=== PATIENT | female | born 1980 | race Caucasian/White ===

== ENCOUNTER 2019-11-12 17:27 | Emergency (ER) | payer OTHER, SELFPAY ==
--- NOTE | ~2019-11-12 | XR_ITS ---
EXAMINATION: XR chest 2V DATE: 11/12/2019 18:24 INDICATION: Smoker with COPD presenting with one week of shortness of breath, cough and wheezing TECHNIQUE: PA and lateral views of the chest were obtained. COMPARISON: Chest radiograph dated 02/19/2019 FINDINGS: Opacity silhouetting a portion of the left heart border which is without intrapulmonary correlate on the lateral projection most likely related to a small paracardial fat pad which is seen anteriorly on the lateral projection. No other new airspace opacities, pulmonary edema, pleural effusion or pneumo thorax. Heart size is normal. Mild thoracic spondylosis. IMPRESSION: 1. No acute cardiopulmonary disease. Reviewed, dictated and finalized at location A. [facility]
[2019-11-12 17:45] VITALS: BP 114/70; PULSE 93; RESP 18; TEMP 36.6; O2SAT 96
--- NOTE | 2019-11-12 17:58 | ED.GENADULT ---
HPI - General Adult General Chief complaint: Upper Respiratory Infection Stated complaint: SOB Time Seen by Provider: 11/12/19 17:58 Source: patient Mode of arrival: ambulatory Limitations: no limitations History of Present Illness HPI narrative: 39-year-old female patient presents to the [facility] with complaints of shortness of breath in the past week. Patient is a positive smoker. Patient does have a history of COPD and asthma. Patient denies getting a flu shot this year. Patient states that she does have an albuterol nebulizer at home that she has been using every 4 hours for her shortness of breath. Patient denies any fevers that she is aware of. Patient states that she has had a cough and it does feel very congested. Patient states that she does have some chest pain with inspiration. Related Data Home Medications Medication Instructions Recorded Confirmed albuterol sulfate 2 puff INHALATION QID PRN 10/02/19 11/12/19 albuterol sulfate 2.5 mg INHALATION Q4H PRN 10/02/19 11/12/19 escitalopram oxalate [Lexapro] 10 mg PO DAILY 10/02/19 11/12/19 famotidine 40 mg PO DAILY 10/02/19 11/12/19 lamotrigine [Lamictal] 100 mg PO DAILY 10/02/19 11/12/19 umeclidinium [Incruse Ellipta] 1 inh INHALATION DAILY 10/02/19 11/12/19 Allergies Allergy/AdvReac Type Severity Reaction Status Date / Time Opioids - Morphine Analogues AdvReac Severe Vomiting Verified 11/12/19 17:59 and dizziness codeine AdvReac Unknown N/V Verified 11/12/19 17:59 Review of Systems Review of Systems: Narrative: CONSTITUTIONAL: Denies fever, chills, or sweats. EYES: Denies visual changes, redness, or discharge. ENT: Denies rhinorrhea, congestion, sore throat, or otalgia. CARDIOVASCULAR: Positive inspiration chest pain, denies palpitations, or edema. RESPIRATORY: Positive cough with dyspnea. GASTROINTESTINAL: Denies abdominal pain, nausea, vomiting, or diarrhea. GENITOURINARY: Denies dysuria or hematuria. SKIN: Denies rash or itching. MUSCULOSKELETAL: Denies back pain, joint pain, or myalgia. NEUROLOGIC: Denies headache, numbness, or weakness. PSYCHIATRIC: Denies anxiety or depression. PMFSH Past Medical History Medical History Asthma COPD (chronic obstructive pulmonary disease) with acute bronchitis Comments At the time of my signature I agree with nursing past medical history, surgical, social, and family history. There is no relevant family history pertinent to the presenting complaint. Exam Narrative: Exam Narrative: GENERAL: ill-appearing, well-nourished, and in no acute distress. HEAD: Normocephalic, atraumatic. EYES: PERRLA and EOMI. ENT: Nares with erythema and edema noted bilaterally, no rhinorrhea or epistaxis. Mucous membranes moist. Posterior pharynx with no erythema, tonsil enlargement, exudates or lesions present. Bilateral TMs are clear with no erythema or foreign bodies in the canal. NECK: Supple. No lymphadenopathy CHEST: Patient has expiratory wheezing noted to bilateral upper lower lobes. Patient does have slight labored breathing noted talking in some broken sentences. No tripoding noted. HEART: Regular rate and rhythm. No murmur heard. Normal peripheral pulses. ABDOMEN: Soft, nontender, nondistended, normal active bowel sounds. EXTREMITIES: Normal range of motion. No edema. SKIN: Warm, dry, no rash. NEURO: No focal deficits. Alert and oriented x3. Course Reevaluation(s) Reevaluation #1: Reevaluated patient after her DuoNeb was completed. Patient states that she is feeling a little bit better since the DuoNeb. Patient's lung sounds continue to be wheezy on expiratory to the right lower lobe and there is no rhonchi noted on expiration to bilateral upper lobes and left lower lobe. Patient does sound less tight after the DuoNeb was completed. Discussed with patient that the x-ray does not show any obvious pneumonia however given her history of COPD, asthma as well as
[2019-11-12] MEDS: IPRATROPIUM BR 0.02% INH SOLN 0.5 MG/2.5 ML VIAL INHALATION (18:23)
[2019-11-12] MEDS: ALBUTEROL SULFATE NEB 2.5 MG/3 ML INH INHALATION (18:23)
[2019-11-12 18:44] VITALS: PULSE 80; RESP 16; O2SAT 97
== END 2019-11-12 18:56 | disposition home or self-care (01) ==
PROVIDERS: Emergency Provider Nurse Practitioner Family
DX: J44.9 Chronic obstructive pulmonary disease, unspecified (principal); J45.901 Unspecified asthma with (acute) exacerbation; K21.9 Gastro-esophageal reflux disease without esophagitis; F41.9 Anxiety disorder, unspecified; F31.9 Bipolar disorder, unspecified
CPT/HCPCS: 71046; 94640; 99213; G0463

== ENCOUNTER 2020-02-18 13:43 | Emergency (ER) | payer OTHER, SELFPAY ==
[2020-02-18 14:00] VITALS: BP 123/73; PULSE 96; RESP 20; TEMP 36.8; O2SAT 98
--- NOTE | 2020-02-18 14:23 | ED.SKABFB ---
HPI - Skin/Abscess/Foreign Bdy General Chief complaint: Extremity Problem,Nontraumatic Stated complaint: right pinky toe pain Time Seen by Provider: 02/18/20 14:23 Source: patient and RN notes reviewed History of Present Illness HPI narrative: Patient is a 39-year-old female that presents the urgent care with complaints of a blister to the pinky toe of the right foot. Patient states that she attempted to pop it yesterday and has had an increase in pain since then. Patient states that she then bought new shoes and decided to put inserts in them and wear them to work for 9 hours. Patient states that the pain is now increased and it feels like it is burning while in the shoe . Patient states that started approximately 4 days ago and does not seem to be improving. Denies of any fever, chills, nausea, vomiting. No other acute complaints. No acute distress noted. Patient read plan of care. Related Data Home Medications Medication Instructions Recorded Confirmed albuterol sulfate 2 puff INHALATION QID PRN 10/02/19 02/18/20 albuterol sulfate 2.5 mg INHALATION Q4H PRN 10/02/19 02/18/20 famotidine 40 mg PO DAILY 10/02/19 02/18/20 lamotrigine [Lamictal] 100 mg PO DAILY 10/02/19 02/18/20 umeclidinium [Incruse Ellipta] 1 inh INHALATION DAILY 10/02/19 02/18/20 budesonide-formoterol [Symbicort] 2 inh INHALATION DAILY 02/18/20 02/18/20 cholecalciferol (vitamin D3) 25 mcg PO DAILY 02/18/20 02/18/20 escitalopram oxalate 20 mg PO DAILY 02/18/20 02/18/20 Allergies Allergy/AdvReac Type Severity Reaction Status Date / Time Opioids - Morphine Analogues AdvReac Severe Vomiting Verified 02/18/20 14:00 and dizziness codeine AdvReac Unknown N/V Verified 02/18/20 14:00 Review of Systems Review of Systems: Narrative: CONSTITUTIONAL: Denies fever, chills, or sweats. EYES: Denies visual changes, redness, or discharge. ENT: Denies rhinorrhea, congestion, sore throat, or otalgia. CARDIOVASCULAR: Denies chest pain, palpitations, or edema. RESPIRATORY: Denies cough or dyspnea. GASTROINTESTINAL: Denies abdominal pain, nausea, vomiting, or diarrhea. GENITOURINARY: Denies dysuria or hematuria. SKIN: Reports of a blister on the pinky toe of the right foot MUSCULOSKELETAL: Denies back pain, joint pain, or myalgia. NEUROLOGIC: Denies headache, numbness, or weakness. All other systems reviewed are negative, except as documented in HPI. PMFSH Comments At the time of my signature, I reviewed and agree with the nursing past medical, surgical, social, and family history. There is no relevant family history pertinent to the patient complaint. Exam Narrative: Exam Narrative: GENERAL: This is a well-nourished, well-developed patient, in no apparent distress. HEAD: normocephalic, atraumatic. EYES: PERRL. Sclera clear/white. Vision is grossly intact. EARS: External ears normal NOSE: External nose normal with no obvious nasal discharge, nares without redness, no rhinorrhea. THROAT: Mucous membranes moist NECK: Neck supple SKIN: 1.5cm diameter fluid-filled blister noted to the plantar aspect of the fifth toe of the right foot. Warm, intact with no suspicious lesions or rash, good texture and turgor. NEURO: awake, alert, and oriented to person, place and time. There were no obvious focal neurologic abnormalities. EXTREMITIES: No clubbing, cyanosis, or edema. Course Vital Signs Vital signs: Vital Signs Temperature 98.2 F 02/18/20 14:00 Pulse Rate 96 02/18/20 14:00 Respiratory Rate 02/18/20 14:00 Blood Pressure 123/73 02/18/20 14:00 Pulse Oximetry 98 02/18/20 14:00 Temperature 98.2 F 02/18/20 14:00 Pulse Rate 96 02/18/20 14:00 Respiratory Rate 02/18/20 14:00 Blood Pressure 123/73 02/18/20 14:00 Pulse Oximetry 98 02/18/20 14:00 Reviewed MDM - Skin/Abscess/Foreign Bdy MDM Narrative Medical decision making narrative: Advised the patient not to pop the blister. Allow it to either dissipate/resolve or drain on it
== END 2020-02-18 14:34 | disposition home or self-care (01) ==
PROVIDERS: Emergency Provider Nurse Practitioner Family
DX: S90.424A Blister (nonthermal), right lesser toe(s), initial encounter (principal); X58.XXXA Exposure to other specified factors, initial encounter
CPT/HCPCS: 99211; G0463

== ENCOUNTER 2020-06-18 08:16 | Emergency (ER) | payer OTHER, SELFPAY ==
--- NOTE | 2020-06-18 08:19 | ED.EAR ---
HPI - Ear Problem General Chief complaint: Ear Stated complaint: ear pain/nausea Time Seen by Provider: 06/18/20 08:19 Source: patient and RN notes reviewed History of Present Illness HPI Narrative: Patient is a 40-year-old female who presents the urgent care with complaints of ear pain and nausea. Patient states that when she moves her head too fast [id number] she becomes dizzy . Patient denies of any fever, nausea, vomiting. Denies of any other upper respiratory symptoms. Patient states she has been using Excedrin and Advil for the pain. No other acute complaints. No acute distress noted. Patient aware of the plan of care. Some parts of this dictation were generated by voice recognition software and may contain typographical and/or grammatical inaccuracies. Related Data Home Medications Medication Instructions Recorded Confirmed albuterol sulfate 2.5 mg INHALATION Q4H PRN 10/02/19 06/18/20 famotidine 40 mg PO DAILY 10/02/19 06/18/20 lamotrigine [Lamictal] 100 mg PO DAILY 10/02/19 06/18/20 umeclidinium [Incruse Ellipta] 1 inh INHALATION DAILY 10/02/19 06/18/20 budesonide-formoterol [Symbicort] 2 inh INHALATION DAILY 02/18/20 06/18/20 cholecalciferol (vitamin D3) 25 mcg PO DAILY 02/18/20 06/18/20 escitalopram oxalate 20 mg PO DAILY 02/18/20 06/18/20 bupropion HCl [Wellbutrin XL] 75 mg PO QAM 06/18/20 06/18/20 zafirlukast 20 mg PO Q12H 06/18/20 06/18/20 Allergies Allergy/AdvReac Type Severity Reaction Status Date / Time Opioids - Morphine Analogues AdvReac Severe Vomiting Verified 06/18/20 08:25 and dizziness codeine AdvReac Unknown N/V Verified 06/18/20 08:25 Review of Systems Review of Systems: Narrative: CONSTITUTIONAL: Denies fever, chills, or sweats. EYES: Denies visual changes, redness, or discharge. ENT: Reports of bilateral ear pain/pressure CARDIOVASCULAR: Denies chest pain, palpitations, or edema. RESPIRATORY: Denies cough or dyspnea. GASTROINTESTINAL: Reports of intermittent nausea related to the dizziness- without vomiting, diarrhea, abdominal pain GENITOURINARY: Denies dysuria or hematuria. SKIN: Denies rash or itching. MUSCULOSKELETAL: Denies back pain, joint pain, or myalgia. NEUROLOGIC: Denies headache, numbness, or weakness. Reports of intermittent dizziness with quick movements of the head All other systems reviewed are negative, except as documented in HPI. PMFSH Comments At the time of my signature, I reviewed and agree with the nursing past medical, surgical, social, and family history. There is no relevant family history pertinent to the patient complaint. Exam Narrative: Exam Narrative: GENERAL: This is a well-nourished, well-developed patient, in no apparent distress. HEAD: normocephalic, atraumatic. EYES: PERRL. Sclera clear/white. Vision is grossly intact. EARS: External ears normal, auditory canals clear and without drainage, TMs normal without perforation. Hearing grossly intact. NOSE: External nose normal with no obvious nasal discharge, nares without redness, no rhinorrhea. THROAT: Mucous membranes moist, posterior pharynx clear. NECK: Neck supple, non-tender without lymphadenopathy, masses or thyromegaly. CARDIOVASCULAR: Regular rate and rhythm without murmurs, gallops, or rubs. RESPIRATORY: Clear to auscultation. Breath sounds equal bilaterally. No wheezes, rales, or rhonchi. GASTROINTESTINAL: Abdomen soft, non-tender, nondistended. Bowel sounds are active. No hepato-splenomegaly, or palpable masses. No guarding. SKIN: warm, intact with no suspicious lesions or rash, good texture and turgor. NEURO: awake, alert, and oriented to person, place and time. There were no obvious focal neurologic abnormalities. EXTREMITIES: No clubbing, cyanosis, or edema. No joint tenderness, effusion, or edema noted. No calf tenderness. Negative Homans sign bilaterally. BACK: Nontender without deformity or crepitance. No flank tenderness. Course Vital Signs Vital signs: Vital Signs Tempera
[2020-06-18 08:20] VITALS: BP 118/75; PULSE 112; RESP 16; TEMP 36.4; O2SAT 96
== END 2020-06-18 08:37 | disposition home or self-care (01) ==
PROVIDERS: Emergency Provider Nurse Practitioner Family; PCP Nurse Practitioner Adult Health
DX: H92.03 Otalgia, bilateral (principal); I10 Essential (primary) hypertension; J44.9 Chronic obstructive pulmonary disease, unspecified; K21.9 Gastro-esophageal reflux disease without esophagitis; F41.9 Anxiety disorder, unspecified; F31.9 Bipolar disorder, unspecified
CPT/HCPCS: 99213; G0463

== ENCOUNTER 2021-02-13 18:09 | Emergency (ER) | payer OTHER, SELFPAY ==
[2021-02-13 18:13] VITALS: BP 129/71; PULSE 86; RESP 16; TEMP 36.7; O2SAT 96
--- NOTE | 2021-02-13 18:56 | ED.URI ---
HPI - URI/Sore Throat General Chief Complaint: Ear Stated Complaint: Nausea, Headache, dizziness, Ear pain Time Seen by Provider: 02/13/21 18:43 Source: patient and RN notes reviewed Mode of arrival: ambulatory Limitations: no limitations History of Present Illness HPI Narrative: Patient presents today with a 2 to 3-day history of right ear pain radiating to the right neck, headache with pressure behind her eyes, dizziness with head movement, photophobia. States that when she sniffs it causes right neck pain. She currently rates her pain 5/10 and has been taking Tylenol Sinus, Flonase, and ibuprofen. Patient quit smoking 3 weeks ago. States this is not her worst headache ever. States she has had several sets of ear tubes and multiple ear infections as a child. Related Data Home Medications Medication Instructions Recorded Confirmed albuterol sulfate 2.5 mg INHALATION Q4H PRN 10/02/19 06/18/20 famotidine 40 mg PO DAILY 10/02/19 06/18/20 lamotrigine [Lamictal] 100 mg PO DAILY 10/02/19 02/13/21 umeclidinium [Incruse Ellipta] 1 inh INHALATION DAILY 10/02/19 06/18/20 budesonide-formoterol [Symbicort] 2 inh INHALATION DAILY 02/18/20 02/13/21 cholecalciferol (vitamin D3) 25 mcg PO DAILY 02/18/20 02/13/21 escitalopram oxalate 20 mg PO DAILY 02/18/20 02/13/21 bupropion HCl [Wellbutrin XL] 75 mg PO QAM 06/18/20 06/18/20 zafirlukast 20 mg PO Q12H 06/18/20 06/18/20 empagliflozin [Jardiance] 25 mg PO DIRECTED 02/13/21 02/13/21 insulin glargine [Lantus Solostar 30 unit SUBCUT HS 02/13/21 02/13/21 U-100 Insulin] Allergies Allergy/AdvReac Type Severity Reaction Status Date / Time Opioids - Morphine Analogues AdvReac Severe Vomiting Verified 06/18/20 08:25 and dizziness codeine AdvReac Unknown N/V Verified 06/18/20 08:25 Review of Systems Review of Systems: Narrative: CONSTITUTIONAL: Denies body aches, fever, chills, or sweats. EYES: Denies visual changes, redness, or discharge.+ Photophobia ENT: Denies rhinorrhea, congestion, sore throat+ right ear pain CARDIOVASCULAR: Denies chest pain, palpitations, or edema. RESPIRATORY: Denies cough or dyspnea. GASTROINTESTINAL: Denies abdominal pain, nausea, vomiting, or diarrhea. GENITOURINARY: Denies dysuria or hematuria. SKIN: Denies rash, itching, or wounds. MUSCULOSKELETAL: Denies back pain, joint pain, or myalgia. NEUROLOGIC: Denies numbness, tingling, or weakness.+ Headache, dizziness PSYCH: Denies depression or anxiety. [facility] Past Medical History Medical History (Updated 02/14/21 @ 00:01 by Kathy Garcia) Asthma COPD (chronic obstructive pulmonary disease) with acute bronchitis Social History Social History Gender identity (if verbalized by the patient): Female Comments At time of signature, I have reviewed and agree with nursing past medical, surgical, social and family history unless otherwise noted. Please see nursing chart for further information. There is no relevant family history pertinent to the presenting complaint Exam Narrative: Exam Narrative: GENERAL: Well-appearing, well-nourished, and in no acute distress. HEAD: Normocephalic, atraumatic. EYES: EOMI. No redness or drainage. Conjunctivae normal. ENT: Mucous membranes pink and moist. Nares clear. No rhinorrhea. Mild bilateral serous effusions. Tenderness along the right eustachian tube. Throat normal. Uvula midline. NECK: Normal AROM. Supple. No lymphadenopathy. CHEST: No respiratory distress. Clear to auscultation. HEART: Regular rate and rhythm. No murmur appreciated. Normal peripheral pulses. EXTREMITIES: Normal range of motion. No edema. SKIN: Warm, dry, no rash. Capillary refill normal. Normal skin turgor. NEURO: No focal deficits. Alert and oriented x3. Gait steady. PSYCH: Normal affect. No signs of depression or anxiety. Course Vital Signs Vital signs: Vital Signs Temperature 98.1 F 02/13/21 18:13 Pulse Rate
== END 2021-02-13 19:02 | disposition home or self-care (01) ==
PROVIDERS: Emergency Provider Nurse Practitioner; PCP Nurse Practitioner Adult Health
DX: H65.03 Acute serous otitis media, bilateral (principal); H69.91 Unspecified Eustachian tube disorder, right ear; J44.9 Chronic obstructive pulmonary disease, unspecified; Z87.891 Personal history of nicotine dependence
CPT/HCPCS: 99213; G0463

== ENCOUNTER 2021-04-29 18:57 | Emergency (ER) | payer OTHER, SELFPAY ==
[2021-04-29 19:00] VITALS: BP 120/65; PULSE 93; RESP 18; TEMP 35.9; O2SAT 98
--- NOTE | 2021-04-29 19:17 | ED.SKABFB ---
HPI - Skin/Abscess/Foreign Bdy General Chief complaint: Skin/Abscess/Foreign Body Stated complaint: stitches removed Time Seen by Provider: 04/29/21 19:10 Source: patient, RN notes reviewed and old records reviewed Mode of arrival: ambulatory Limitations: no limitations History of Present Illness HPI narrative: 40 year old female who presents to [facility] care with complaints of cat bite to her right wrist on the 19 of April and needs her stitches removed. Patient states that she went to [facility] and had 2 sutures placed to wound, was placed on oral antibiotics and received Tetanus update. Patient has some redness around sutures noted with wound well healed. patient denies any known fevers, chills or sweats, denies any acute pain to wound site, patient has other areas of healing scratches noted on right forearm. MD complaint: other (here for removal of stitches) Onset (ago): day(s) (stitches placed on the 19 of april) Tetanus up to date: yes Related Data Home Medications Medication Instructions Recorded Confirmed albuterol sulfate 2.5 mg INHALATION Q4H PRN 10/02/19 04/29/21 famotidine 40 mg PO DAILY 10/02/19 04/29/21 lamotrigine [Lamictal] 100 mg PO DAILY 10/02/19 04/29/21 umeclidinium [Incruse Ellipta] 1 inh INHALATION DAILY 10/02/19 04/29/21 budesonide-formoterol [Symbicort] 2 inh INHALATION DAILY 02/18/20 04/29/21 cholecalciferol (vitamin D3) 25 mcg PO DAILY 02/18/20 04/29/21 escitalopram oxalate 20 mg PO DAILY 02/18/20 04/29/21 bupropion HCl [Wellbutrin XL] 75 mg PO QAM 06/18/20 04/29/21 zafirlukast 20 mg PO Q12H 06/18/20 04/29/21 empagliflozin [Jardiance] 25 mg PO DIRECTED 02/13/21 04/29/21 insulin glargine [Lantus Solostar 30 unit SUBCUT HS 02/13/21 04/29/21 U-100 Insulin] Allergies Allergy/AdvReac Type Severity Reaction Status Date / Time Opioids - Morphine Analogues AdvReac Severe Vomiting Verified 04/29/21 19:02 and dizziness codeine AdvReac Unknown N/V Verified 04/29/21 19:02 Review of Systems Review of Systems: CONSTITUTIONAL: Denies fever, chills, or sweats. EYES: Denies visual changes, redness, or discharge. ENT: Denies rhinorrhea, congestion, sore throat, or otalgia. CARDIOVASCULAR: Denies chest pain, palpitations, or edema. RESPIRATORY: Denies cough or dyspnea. GASTROINTESTINAL: Denies abdominal pain, nausea, vomiting, or diarrhea. GENITOURINARY: Denies dysuria or hematuria. SKIN:Well approximated wound to her right anterior wrist area with some redness noted around sutures, no drainage noted patient states that she has completed the oral antibiotic MUSCULOSKELETAL: Denies back pain, joint pain, or myalgia. NEUROLOGIC: Denies headache, numbness, or weakness. PSYCHIATRIC: Denies anxiety or depression. All systems reviewed & are unremarkable except as noted in HPI and below PMFSH Past Medical History Medical History (Updated 04/30/21 @ 00:02 by Kathy Garcia) Anxiety and depression Asthma Bipolar 1 disorder COPD (chronic obstructive pulmonary disease) with acute bronchitis Diabetes Surgical History Surgical History (Updated 04/29/21 @ 20:02 by Carmen Welsh NP) History of carpal tunnel release right History of placement of ear tubes 6 sets History of tonsillectomy and adenoidectomy Hx of appendectomy Hx of arthroscopy of left knee 2X on left meniscus injury Previous section Family History Family History (Updated 04/29/21 @ 20:04 by Carmen Welsh NP) Mother Glaucoma Hypertension Father Hypertension Congenital heart disease COPD (chronic obstructive pulmonary disease) Social History Social History (Updated 04/29/21 @ 19:54 by Carmen Welsh NP) Smoking status: Former smoker Tobacco type: e-cigarettes/vaping Additional smoking assessment comments: states that she smoked 1- 1.5 pks per day for close to 30 yrs, none 90 dys Alcohol intake: former Substance use: former 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
== END 2021-04-29 19:44 | disposition home or self-care (01) ==
PROVIDERS: Emergency Provider Registered Nurse
DX: S61.551D Open bite of right wrist, subsequent encounter (principal); W55.01XD Bitten by cat, subsequent encounter; J45.909 Unspecified asthma, uncomplicated; J44.9 Chronic obstructive pulmonary disease, unspecified; E11.9 Type 2 diabetes mellitus without complications; Z87.891 Personal history of nicotine dependence
CPT/HCPCS: 99211; G0463

== ENCOUNTER 2021-09-22 14:05 | Emergency (ER) | payer OTHER, SELFPAY ==
[2021-09-22 14:52] VITALS: BP 119/70; PULSE 92; RESP 18; TEMP 36.6; O2SAT 97
--- NOTE | 2021-09-22 16:01 | ED.EAR ---
HPI - Ear Problem General Chief complaint: Ear Stated complaint: Ear Pain/Headache Time Seen by Provider: 09/22/21 15:40 Source: patient and RN notes reviewed History of Present Illness HPI Narrative: Patient is a 41-year-old female who presents the urgent care with complaints of right ear pain and headache. Patient states the ear pain is now causing some right-sided facial pain. Patient states that it started 2 days ago. 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 Patient has been Covid vaccinated. Patient denies of any new onset fever, chills, nausea, vomiting or other upper respiratory complaints. Patient has been taking Tylenol for her symptoms. No other acute complaints. No acute distress noted. Patient read a plan of care. Some parts of this dictation were generated by voice recognition software and may contain typographical and/or grammatical inaccuracies. Related Data Home Medications Medication Instructions Recorded Confirmed albuterol sulfate 2.5 mg INHALATION Q4H PRN 10/02/19 09/22/21 famotidine 40 mg PO DAILY 10/02/19 09/22/21 lamotrigine [Lamictal] 100 mg PO DAILY 10/02/19 09/22/21 umeclidinium [Incruse Ellipta] 1 inh INHALATION DAILY 10/02/19 09/22/21 budesonide-formoterol [Symbicort] 2 inh INHALATION DAILY 02/18/20 09/22/21 cholecalciferol (vitamin D3) 25 mcg PO DAILY 02/18/20 09/22/21 escitalopram oxalate 20 mg PO DAILY 02/18/20 09/22/21 bupropion HCl [Wellbutrin XL] 75 mg PO QAM 06/18/20 09/22/21 zafirlukast 20 mg PO Q12H 06/18/20 09/22/21 empagliflozin [Jardiance] 25 mg PO DIRECTED 02/13/21 09/22/21 insulin glargine [Lantus Solostar 30 unit SUBCUT HS 02/13/21 09/22/21 U-100 Insulin] Allergies Allergy/AdvReac Type Severity Reaction Status Date / Time Opioids - Morphine Analogues AdvReac Severe Vomiting Verified 09/22/21 15:52 and dizziness codeine AdvReac Unknown N/V Verified 09/22/21 15:52 Review of Systems Review of Systems: CONSTITUTIONAL: Denies fever, chills, or sweats. EYES: Denies visual changes, redness, or discharge. ENT: Reports of right otalgia without rhinorrhea or congestion CARDIOVASCULAR: Denies chest pain, palpitations, or edema. RESPIRATORY: Denies cough or dyspnea. GASTROINTESTINAL: Denies abdominal pain, nausea, vomiting, or diarrhea. GENITOURINARY: Denies dysuria or hematuria. SKIN: Denies rash or itching. MUSCULOSKELETAL: Denies back pain, joint pain, or myalgia. NEUROLOGIC: reports of headache All other systems reviewed are negative, except as documented in HPI. [facility] Past Medical History Medical History (Updated 09/22/21 @ 16:04 by JULIA Bain) Anxiety and depression Asthma Bipolar 1 disorder COPD (chronic obstructive pulmonary disease) with acute bronchitis Diabetes Surgical History Surgical History (Updated 04/29/21 @ 20:02 by Carmen Welsh NP) History of carpal tunnel release right History of placement of ear tubes 6 sets History of tonsillectomy and adenoidectomy Hx of appendectomy Hx of arthroscopy of left knee 2X on left meniscus injury Previous section Family History Family History (Updated 04/29/21 @ 20:04 by Carmen Welsh NP) Mother Glaucoma Hypertension Father Hypertension Congenital heart disease COPD (chronic obstructive pulmonary disease) Social History Social History (Updated 04/29/21 @ 19:54 by Carmen Welsh NP) Smoking status: Former smoker Tobacco type: e-cigarettes/vaping Additional smoking assessment comments: states that she smoked 1- 1.5 pks per day for close to 30 yrs, none 90 dys Alcohol intake: former Substance use: 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 There is no relevant family history pertinent to the patient complaint. Exam Narrative: GENERAL:
== END 2021-09-22 16:05 | disposition home or self-care (01) ==
PROVIDERS: Emergency Provider Nurse Practitioner
DX: H66.91 Otitis media, unspecified, right ear (principal); Z87.891 Personal history of nicotine dependence; J44.9 Chronic obstructive pulmonary disease, unspecified; E11.9 Type 2 diabetes mellitus without complications; F31.9 Bipolar disorder, unspecified; F41.9 Anxiety disorder, unspecified
CPT/HCPCS: 99213; G0463

== ENCOUNTER 2021-11-10 08:04 | Emergency (ER) | payer OTHER, SELFPAY ==
--- NOTE | 2021-11-10 08:13 | ED.EYEPROB ---
HPI - Eye Problem General Chief complaint: Eye Problems Stated complaint: possible pink eye Time Seen by Provider: 11/10/21 08:20 Source: patient, RN notes reviewed and old records reviewed Mode of arrival: ambulatory Limitations: no limitations History of Present Illness HPI Narrative: [facility] patient [facility] with complaints of left itchy eyes starting last night. Reports eye became irritated and itchy had thick white-greenish discharge overnight. Left eye was matted shut this morning. Had to use warm washcloth to open eye. Feels like sand feels gritty. Reports right eye started to feel gritty this morning also. Small amount of greenish-white discharge from right eye. Reports blurry vision in left eye this morning improved after clearing mucus from eye. Has been using warm compresses to eyes. Reports yearly eye infections after accident 9 years ago. Denies fever muscle aches or chills. Reports mild stuffy nose runny nose after Covid last month. Denies cough shortness of breath or difficulty breathing. Reports feeling good otherwise. MD chief complaint: eye redness Related Data Home Medications Medication Instructions Recorded Confirmed famotidine 40 mg PO DAILY 10/02/19 11/10/21 lamotrigine [Lamictal] 100 mg PO DAILY 10/02/19 11/10/21 cholecalciferol (vitamin D3) 25 mcg PO DAILY 02/18/20 11/10/21 escitalopram oxalate 20 mg PO DAILY 02/18/20 11/10/21 empagliflozin [Jardiance] 25 mg PO DIRECTED 02/13/21 11/10/21 insulin glargine [Lantus Solostar 30 unit SUBCUT HS 02/13/21 11/10/21 U-100 Insulin] Allergies Allergy/AdvReac Type Severity Reaction Status Date / Time Opioids - Morphine Analogues AdvReac Severe Vomiting Verified 11/10/21 08:31 and dizziness codeine AdvReac Unknown N/V Verified 11/10/21 08:31 metformin AdvReac Nausea and Verified 11/10/21 08:31 Vomiting Review of Systems Review of Systems: CONSTITUTIONAL: Denies malaise, chills, sweats, or fever. EYES: Mild blurry vision in left eye this morning. Better after clearing mucus.. Reports redness, irritation, thick mucus discharge in the left eye. Right eye feeling gritty this morning. ENT: Denies congestion, sinus pain, otalgia and sore throat. Runny nose x1 month after Covid diagnosis. CARDIOVASCULAR: Denies chest pain, palpitations, or edema. RESPIRATORY: Denies cough. Denies dyspnea. GASTROINTESTINAL: Denies abdominal pain, nausea, vomiting, diarrhea SKIN: Denies rash or itching. MUSCULOSKELETAL: Denies myalgia. NEUROLOGIC: Denies headache. [facility] Past Medical History Medical History (Updated 11/10/21 @ 08:43 by Leidy Cordova APRN) Anxiety and depression Asthma Bipolar 1 disorder COPD (chronic obstructive pulmonary disease) with acute bronchitis Diabetes Surgical History Surgical History (Updated 04/29/21 @ 20:02 by Carmen Welsh NP) History of carpal tunnel release right History of placement of ear tubes 6 sets History of tonsillectomy and adenoidectomy Hx of appendectomy Hx of arthroscopy of left knee 2X on left meniscus injury Previous section Family History Family History Mother Glaucoma Hypertension Father Hypertension Congenital heart disease COPD (chronic obstructive pulmonary disease) Social History Social History (Updated 04/29/21 @ 19:54 by Carmen Welsh NP) Smoking status: Former smoker Tobacco type: e-cigarettes/vaping Additional smoking assessment comments: states that she smoked 1- 1.5 pks per day for close to 30 yrs, none 90 dys Alcohol intake: former 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 There is no relevant family history pertinent to the presenting complaint Exam Narrative: GENERAL: Well-appearing, well-
[2021-11-10 08:15] VITALS: BP 118/79; PULSE 86; RESP 20; TEMP 36.4; O2SAT 98
== END 2021-11-10 08:55 | disposition home or self-care (01) ==
PROVIDERS: Emergency Provider Nurse Practitioner Family
DX: H10.33 Unspecified acute conjunctivitis, bilateral (principal); F17.290 Nicotine dependence, other tobacco product, uncomplicated; J44.9 Chronic obstructive pulmonary disease, unspecified; E11.9 Type 2 diabetes mellitus without complications; F31.9 Bipolar disorder, unspecified; F41.9 Anxiety disorder, unspecified; Z86.16 Personal history of COVID-19
CPT/HCPCS: 99213; G0463

== ENCOUNTER 2021-11-22 17:27 | Emergency (ER) | payer BC, MEDICAID, SELFPAY ==
--- NOTE | 2021-11-22 17:29 | ED.URI ---
HPI - URI/Sore Throat General Chief Complaint: Skin/Abscess/Foreign Body Stated Complaint: Facial Swelling Time Seen by Provider: 11/22/21 17:29 Source: patient Mode of arrival: ambulatory Limitations: no limitations History of Present Illness HPI Narrative: Mrs. Francis is a 41-year-old female patient presenting to the clinic today with complaints of facial swelling x 1 day. She reports she woke up with left eye swelling and that has gotten into the left side of the face affecting the cheek and the forehead. She denies any fever chills. Reports that the eyelid is very swollen puffy and painful. Denies any use of any make-up, any environmental changes, any new foods, or any new soaps or detergents. She denies any shortness of breath, difficulty swallowing, or drooling. Related Data Home Medications Medication Instructions Recorded Confirmed lamotrigine [Lamictal] 100 mg PO DAILY 10/02/19 11/10/21 cholecalciferol (vitamin D3) 25 mcg PO DAILY 02/18/20 11/10/21 escitalopram oxalate 20 mg PO DAILY 02/18/20 11/10/21 empagliflozin [Jardiance] 10 mg PO DAILY 11/22/21 11/22/21 Allergies Allergy/AdvReac Type Severity Reaction Status Date / Time Opioids - Morphine Analogues AdvReac Severe Vomiting Verified 11/10/21 08:31 and dizziness codeine AdvReac Unknown N/V Verified 11/10/21 08:31 metformin AdvReac Nausea and Verified 11/10/21 08:31 Vomiting Review of Systems Review of Systems: Pertinent positives per HPI. Patient denies any fever, chills, rash, headache, visual changes, dizziness, cough, shortness of breath, chest pain, palpitations, nausea, vomiting, diarrhea, constipation, abdominal pain, or any urinary issues. [facility] Past Medical History Medical History Anxiety and depression Asthma Bipolar 1 disorder COPD (chronic obstructive pulmonary disease) with acute bronchitis Diabetes Surgical History Surgical History History of carpal tunnel release right History of placement of ear tubes 6 sets History of tonsillectomy and adenoidectomy Hx of appendectomy Hx of arthroscopy of left knee 2X on left meniscus injury Previous section Family History Family History Mother Glaucoma Hypertension Father Hypertension Congenital heart disease COPD (chronic obstructive pulmonary disease) Social History Social History Smoking status: Former smoker Tobacco type: e-cigarettes/vaping Additional smoking assessment comments: states that she smoked 1- 1.5 pks per day for close to 30 yrs, none 90 dys Alcohol intake: former Substance use: 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 There is no relevant family history pertinent to the patient complaint. Exam Narrative: General: Well-developed, well nourished, in no apparent distress Head: Normocephalic, atraumatic, able to wrinkle forehead Eyes: Pupils equally round and reactive to light bilaterally, EOM intact, sclera and conjunctive clear, no discharge, left eyelid swollen and upper eyelid painful to palpation without mass or abscess. Facial swelling noted to the left cheek and forehead when compared contralaterally. Ears: TMs intact and clear, ear canals clear, no drainage, grossly hearing normal. Nose: Nares patent, no discharge, no inflammation, no sinus tenderness. Mouth: Oral pharynx without lesions or masses, good dentition, MMM. Smile is symmetric, tongue midline Neck: Supple, trachea midline, no enlargement of anterior or posterior cervical nodes, no thyroid masses or goiter palpable. Cardio: Regular rat
[2021-11-22 17:30] VITALS: BP 127/103; PULSE 99; RESP 16; TEMP 36.7; O2SAT 98
[2021-11-22 17:52] VITALS: BP 127/103; PULSE 99; RESP 16; TEMP 36.7; O2SAT 98
== END 2021-11-22 17:50 | disposition home or self-care (01) ==
PROVIDERS: Emergency Provider Nurse Practitioner Family
DX: R22.0 Localized swelling, mass and lump, head (principal); F17.290 Nicotine dependence, other tobacco product, uncomplicated; J45.909 Unspecified asthma, uncomplicated; F31.9 Bipolar disorder, unspecified; F41.9 Anxiety disorder, unspecified; J44.9 Chronic obstructive pulmonary disease, unspecified; E11.9 Type 2 diabetes mellitus without complications
CPT/HCPCS: 99213; G0463

== ENCOUNTER 2022-08-31 14:32 | Emergency (ER) | payer BC, MEDICAID, SELFPAY ==
[2022-08-31 14:46] VITALS: BP 111/75; PULSE 106; RESP 16; TEMP 36.6; O2SAT 98
--- NOTE | 2022-08-31 15:58 | ED.URI ---
HPI - URI/Sore Throat General Chief Complaint: Upper Respiratory Infection Stated Complaint: Sore Throat/Chest Congestion Time Seen by Provider: 08/31/22 15:59 Source: patient and RN notes reviewed Mode of arrival: ambulatory Limitations: no limitations History of Present Illness HPI Narrative: 42-year-old female presented for complaint of sinus congestion, cough, sore throat with burning sensation in chest with coughing. She endorses fatigue and headache. denies shortness of breath, wheezing, nausea, vomiting, diarrhea. She has not taking anything for symptoms. She endorses her family tested positive for influenza a recently. MD elicited complaint: cough Related Data Home Medications Medication Instructions Recorded Confirmed lamotrigine 100 mg tablet 100 mg PO DAILY 10/02/19 08/31/22 (Lamictal) cholecalciferol (vitamin D3) 25 25 mcg PO DAILY 02/18/20 08/31/22 mcg (1,000 unit) tablet escitalopram oxalate 20 mg tablet 20 mg PO DAILY 02/18/20 08/31/22 Allergies Allergy/AdvReac Type Severity Reaction Status Date / Time Opioids - Morphine Analogues AdvReac Severe Vomiting Verified 08/31/22 15:34 and dizziness codeine AdvReac Unknown N/V Verified 08/31/22 15:34 metformin AdvReac Nausea and Verified 08/31/22 15:34 Vomiting Review of Systems Review of Systems: ROS per HPI [facility] Past Medical History Medical History Anxiety and depression Asthma Bipolar 1 disorder COPD (chronic obstructive pulmonary disease) with acute bronchitis Diabetes Surgical History Surgical History History of carpal tunnel release right History of placement of ear tubes 6 sets History of tonsillectomy and adenoidectomy Hx of appendectomy Hx of arthroscopy of left knee 2X on left meniscus injury Previous section Family History Family History Mother Glaucoma Hypertension Father Hypertension Congenital heart disease COPD (chronic obstructive pulmonary disease) Social History Social History Smoking status: Former smoker Tobacco type: e-cigarettes/vaping Additional smoking assessment comments: states that she smoked 1- 1.5 pks per day for close to 30 yrs, none 90 dys Alcohol intake: former Substance use: former 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 HEAD: Normocephalic EYES: PERRLA, conjunctivae clear ENT: Mucous membranes moist. TMs pearly montes with dull light reflex bilaterally; no tragal tenderness. Oropharynx erythematous without lesions or exudate, no drooling, no hoarseness, no trismus, uvula midline. NECK: Supple. No lymphadenopathy CHEST: Clear to auscultation, breath sounds equal. No wheezing, rhonchi, rales, or stridor. HEART: Regular rate and rhythm. No murmur heard. SKIN: Warm, dry, no rash. NEURO: Alert and oriented x3. Course Course Emergency Course: Patient is aware of diagnosis, understands and agrees to treatment plan. Anticipatory guidance given. Patient agrees to follow-up as directed and is aware of reasons to seek care at the emergency department. Portions of this record may have been created with voice recognition software Level of Care: Express Care Visit Vital Signs Vital signs: Vital Signs Temperature 98 F 08/31/22 14:46 Pulse Rate 106 H 08/31/22 14:46 Respiratory Rate 16 08/31/22 14:46 Blood Pressure 111/75 08/31/22 14:46 Pulse Oximetry 98 08/31/22 14:46 Oxygen Delivery Room Air 08/31/22 14:46 Temperature 98 F 08/31/22 14:46 Pulse Rate 106 H 08/31/22 14:46 Respiratory Rate 16 08/31/22 14:46 Blood Pressure 111/75 08/31/22 14:46 Pulse Oximetry 98 12
== END 2022-08-31 16:10 | disposition home or self-care (01) ==
PROVIDERS: Emergency Provider Nurse Practitioner Family
DX: B34.9 Viral infection, unspecified (principal); F41.9 Anxiety disorder, unspecified; J44.9 Chronic obstructive pulmonary disease, unspecified; E11.9 Type 2 diabetes mellitus without complications; F31.9 Bipolar disorder, unspecified
CPT/HCPCS: 99211; G0463

== ENCOUNTER 2023-03-17 13:09 | Emergency (ER) | payer BC, SELFPAY ==
[2023-03-17 13:16] VITALS: BP 128/58; PULSE 90; RESP 16; TEMP 35.7; O2SAT 95
--- NOTE | 2023-03-17 13:23 | ED.URI ---
HPI - URI/Sore Throat General Chief Complaint: Upper Respiratory Infection Stated Complaint: Sore Throat/Headache Source: patient and RN notes reviewed History of Present Illness HPI Narrative: 42 yo F presents to urgent care with complaints of sore throat, MONT[place]GRO, and right ear pain that started yesterday. Pt states she feels like she is burning up and sweating a lot but denies any known fevers. Pt states she felt a little SOB yesterday but chalked it up to the poor air quality in the area. Denies any cough, SOB, chest pain, vomiting, diarrhea, or other symptoms. Pt has taken Tylenol at home. Related Data Home Medications Medication Instructions Recorded Confirmed lamotrigine 100 mg tablet 100 mg PO DAILY 10/02/19 03/17/23 (Lamictal) cholecalciferol (vitamin D3) 25 25 mcg PO DAILY 02/18/20 03/17/23 mcg (1,000 unit) tablet escitalopram oxalate 20 mg tablet 20 mg PO DAILY 02/18/20 03/17/23 Allergies Allergy/AdvReac Type Severity Reaction Status Date / Time Opioids - Morphine Analogues AdvReac Severe Vomiting Verified 03/17/23 13:27 and dizziness codeine AdvReac Unknown N/V Verified 03/17/23 13:27 metformin AdvReac Nausea and Verified 03/17/23 13:27 Vomiting Review of Systems Review of Systems: Pertinent positives and pertinent negatives per HPI. [facility] Past Medical History Medical History Anxiety and depression Asthma Bipolar 1 disorder COPD (chronic obstructive pulmonary disease) with acute bronchitis Diabetes Surgical History Surgical History History of carpal tunnel release right History of placement of ear tubes 6 sets History of tonsillectomy and adenoidectomy Hx of appendectomy Hx of arthroscopy of left knee 2X on left meniscus injury Previous section Family History Family History Mother Glaucoma Hypertension Father Hypertension Congenital heart disease COPD (chronic obstructive pulmonary disease) Social History Social History Smoking status: Former smoker Tobacco type: e-cigarettes/vaping Additional smoking assessment comments: states that she smoked 1- 1.5 pks per day for close to 30 yrs, none 90 dys Alcohol intake: former Substance use: 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 There is no relevant family history pertinent to the patient complaint. Exam Narrative: GENERAL: This is a well-nourished, well-developed patient, in no apparent distress. HEAD: normocephalic, atraumatic. EYES: Sclera clear/white. Vision is grossly intact. EARS: External ears normal, auditory canals clear and without drainage, TMs normal without perforation. Hearing grossly intact. NOSE: External nose normal with no obvious nasal discharge, nares without redness, no rhinorrhea. THROAT: Mucous membranes moist, posterior pharynx clear. NECK: Neck supple, non-tender without lymphadenopathy, masses or thyromegaly. CARDIOVASCULAR: Regular rate and rhythm without murmurs, gallops, or rubs. RESPIRATORY: Clear to auscultation. Breath sounds equal bilaterally. No wheezes, rales, or rhonchi. GASTROINTESTINAL: Abdomen soft, non-tender, nondistended. Bowel sounds are active. No hepato-splenomegaly, or palpable masses. No guarding. SKIN: warm, intact with no suspicious lesions or rash, good texture and turgor. NEURO: awake, alert, and oriented to person, place and time. There were no obvious focal neurologic abnormalities. EXTREMITIES: No clubbing, cyanosis, or edema. No joint tenderness, effusion, or edema noted. BACK: Nontender without deformity or
== END 2023-03-17 13:41 | disposition home or self-care (01) ==
PROVIDERS: Emergency Provider Nurse Practitioner Family
DX: J06.9 Acute upper respiratory infection, unspecified (principal); J44.9 Chronic obstructive pulmonary disease, unspecified; E11.9 Type 2 diabetes mellitus without complications; Z87.891 Personal history of nicotine dependence
CPT/HCPCS: 87081; 87880; 99213; G0463

== ENCOUNTER 2023-09-21 09:34 | Emergency (ER) | payer BC, SELFPAY ==
--- NOTE | ~2023-09-21 | XR_ITS ---
XR chest 2V DATE: 09/21/2023 10:33 INDICATION: Cough and congestion for 2 days. COPD. TECHNIQUE: 2 views COMPARISON: None FINDINGS: Normal heart size. No hilar or mediastinal enlargement. Mild discoid atelectasis or scarring at the lung bases. No pulmonary infiltrate or consolidation, pleural effusion or pulmonary vascular congestion or pneumo thorax is noted otherwise. Included skeletal structures are unremarkable. IMPRESSION: Mild discoid atelectasis or scarring at both lung bases Reviewed, dictated and finalized at location [facility]. [employer] [facility]
[2023-09-21 09:38] VITALS: BP 136/81; PULSE 95; RESP 20; TEMP 36.4; O2SAT 95
--- NOTE | 2023-09-21 10:11 | ED.URI ---
HPI - URI/Sore Throat General Chief Complaint: Upper Respiratory Infection Stated Complaint: throat/chest Time Seen by Provider: 09/21/23 10:11 Source: patient, RN notes reviewed and old records reviewed Mode of arrival: ambulatory Limitations: no limitations History of Present Illness HPI Narrative: 43-year-old female presents to the [facility] with complaints of sore throat and chest congestion that started Monday afternoon, 2 days ago. Has taken Benadryl and DayQuil. Has used her inhaler at 5am. Has a history of asthma/COPD Unsure of any exposures to flu or COVID Treatments prior to arrival: cold medicine Related Data Home Medications Medication Instructions Recorded Confirmed lamotrigine 100 mg tablet 100 mg PO DAILY 10/02/19 03/17/23 (Lamictal) cholecalciferol (vitamin D3) 25 25 mcg PO DAILY 02/18/20 03/17/23 mcg (1,000 unit) tablet escitalopram oxalate 20 mg tablet 20 mg PO DAILY 02/18/20 03/17/23 Allergies Allergy/AdvReac Type Severity Reaction Status Date / Time Opioids - Morphine Analogues AdvReac Severe Vomiting Verified 03/17/23 13:27 and dizziness codeine AdvReac Unknown N/V Verified 03/17/23 13:27 metformin AdvReac Nausea and Verified 03/17/23 13:27 Vomiting Review of Systems Review of Systems: All systems reviewed & are unremarkable except as noted in HPI and below Constitutional: Constitutional: Reports no additional constitutional complaints Eyes: Eyes: Reports no additional eye complaints ENT: Reports as per HPI and Reports sore throat Cardiovascular: Cardiovascular: Reports no additional cardiovascular complaints, Denies chest pain and Denies dyspnea Respiratory: Respiratory: Reports chest congestion, Reports cough and Denies dyspnea Gastrointestinal: Gastrointestinal: Reports no additional gastrointestinal complaints, Denies abdominal pain, Denies nausea and Denies vomiting Musculoskeletal: Musculoskeletal: Reports no additional musculoskeletal complaints Integumentary/Breasts: Skin/Breast: Reports system reviewed and no additional complaints, except as docu Neurologic: Reports system reviewed and no additional complaints, except as documented Psychiatric: Psychiatric: Reports no additional psychiatric complaints Allergic/Immunologic: Allergic/Immunologic: Reports no additional allergic/immunologic complaints PMFSH Past Medical History Medical History Anxiety and depression Asthma Bipolar 1 disorder COPD (chronic obstructive pulmonary disease) with acute bronchitis Diabetes Surgical History Surgical History History of carpal tunnel release right History of placement of ear tubes 6 sets History of tonsillectomy and adenoidectomy Hx of appendectomy Hx of arthroscopy of left knee 2X on left meniscus injury Previous section Family History Family History Mother Glaucoma Hypertension Father Hypertension Congenital heart disease COPD (chronic obstructive pulmonary disease) Social History Social History Smoking status: Former smoker Tobacco type: e-cigarettes/vaping Additional smoking assessment comments: states that she smoked 1- 1.5 pks per day for close to 30 yrs, none 90 dys Alcohol intake: former Substance use: 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 There is no relevant family history pertinent to the patient complaint. Exam Const: General: cooperative, healthy appearing, comfortable, no acute distress, well developed, alert and well nourished Nutritional Appearance: well nourished Christian
== END 2023-09-21 10:57 | disposition home or self-care (01) ==
PROVIDERS: Emergency Provider Nurse Practitioner
DX: J44.0 Chronic obstructive pulmonary disease with (acute) lower respiratory infection (principal); J20.9 Acute bronchitis, unspecified; J02.9 Acute pharyngitis, unspecified; J98.11 Atelectasis; Z20.822 Contact with and (suspected) exposure to COVID-19; F31.9 Bipolar disorder, unspecified; E11.9 Type 2 diabetes mellitus without complications; F41.9 Anxiety disorder, unspecified
CPT/HCPCS: 71046; 87081; 87426; 87804; 87880; 99213; C9803; G0463

== ENCOUNTER 2024-07-12 08:02 | Emergency (ER) | payer BC, SELFPAY ==
[2024-07-12 08:12] VITALS: BP 116/62; PULSE 75; RESP 18; TEMP 36.2; O2SAT 94
--- NOTE | 2024-07-12 08:13 | ED_ITS ---
HPI - Ear Problem General Chief complaint: Ear Stated complaint: dizzy Time Seen by Provider: 07/12/24 08:13 Source: patient Mode of arrival: ambulatory Limitations: no limitations History of Present Illness HPI Narrative: 44-year-old female presents with complaint of pressure to bilateral ears, right ear is painful with tinnitus. Intermittent dizziness since yesterday. Afebrile. Denies cough, congestion, sinus pressure. All systems reviewed and negative except as noted above. Related Data Home Medications Medication Instructions Recorded Confirmed lamotrigine 100 mg tablet 100 mg PO DAILY 10/02/19 07/12/24 (Lamictal) cholecalciferol (vitamin D3) 25 25 mcg PO DAILY 02/18/20 07/12/24 mcg (1,000 unit) tablet escitalopram oxalate 20 mg tablet 20 mg PO DAILY 02/18/20 07/12/24 hydroxyzine pamoate 25 mg capsule 25 mg PO DAILY 07/12/24 07/12/24 tirzepatide (weight loss) 5 mg/0.5 5 mg subcut DIRECTED 07/12/24 07/12/24 mL subcutaneous pen injector (Zepbound) Allergies Allergy/AdvReac Type Severity Reaction Status Date / Time Opioids - Morphine Analogues AdvReac Severe Vomiting Verified 07/12/24 08:16 and dizziness codeine AdvReac Unknown N/V Verified 07/12/24 08:16 metformin AdvReac Nausea and Verified 07/12/24 08:16 Vomiting Review of Systems Review of Systems: CONSTITUTIONAL: Denies fever, chills, or sweats. EYES: Denies visual changes, redness, or discharge. ENT: Denies rhinorrhea, congestion, sore throat . Reports ear pressure bilaterally, pain and tinnitus to right ear CARDIOVASCULAR: Denies chest pain, palpitations, or edema. RESPIRATORY: Denies cough or dyspnea. GASTROINTESTINAL: Denies abdominal pain, nausea, vomiting, or diarrhea. GENITOURINARY: Denies dysuria or hematuria. SKIN: Denies rash or itching. MUSCULOSKELETAL: Denies back pain, joint pain, or myalgia. NEUROLOGIC: Denies headache, numbness, or weakness. PSYCHIATRIC: Denies anxiety or depression. All other systems reviewed are negative, except as documented in HPI. [facility] Past Medical History Medical History Anxiety and depression Asthma Bipolar 1 disorder COPD (chronic obstructive pulmonary disease) with acute bronchitis Diabetes Surgical History Surgical History History of carpal tunnel release right History of placement of ear tubes 6 sets History of tonsillectomy and adenoidectomy Hx of appendectomy Hx of arthroscopy of left knee 2X on left meniscus injury Previous section Family History Family History Mother Glaucoma Hypertension Father Hypertension Congenital heart disease COPD (chronic obstructive pulmonary disease) Social History Social History Smoking status: Former smoker Tobacco type: e-cigarettes/vaping Additional smoking assessment comments: states that she smoked 1- 1.5 pks per day for close to 30 yrs, none 90 dys Alcohol intake: former Substance use: former 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 There is no relevant family history pertinent to the presenting complaint. Exam Narrative: GENERAL: This is a well-nourished, well-developed patient, in no apparent distress. HEAD: normocephalic, atraumatic. EYES: PERRL. Sclera clear/white. Vision is grossly intact. EARS: External ears normal, auditory canals clear and without drainage, fluid bilateral TMs, left TM is opaque with dull light reflex , right TM is erythematous. Hearing grossly intact. NOSE: External nose normal with no obvious nasal discharge, nares without redness, no rhinorrhea. THROAT: Mucous membranes moist, posterior pharynx clear. NECK: Neck supple, non-tender without lymphadenopathy, masses or thyromegaly. CARDIOVASCULAR: Regular rate and rhythm without murmurs, gallops, or rubs. RESPIRATORY: Clear to auscultation. Breath sounds equal bilaterally. No wheezes, rales, or rhonchi. SKIN: warm, Dry, intact with no suspicious lesions or rash, good texture and turgor. NEURO: awake, alert, and oriented to person, place and time. There were no obvious focal neurologic abnormalities. EXTREMITIES: No joint tenderness, effusion, or edema noted. Course Course Level of Care: Express Care Visit Vital Signs Vital signs: Vital Signs Temperature 36.2 C L 07/12/24 08:12 Pulse Rate 75 07/12/24 08:12 Respiratory Rate 18 07/12/24 08:12 Blood Pressure 116/62 07/12/24 08:12 Pulse Oximetry 94 07/12/24 08:12 Oxygen Delivery Room Air 07/12/24 08:12 Temperature 36.2 C L 07/12/24 08:12 Pulse Rate 75 07/12/24 08:12 Respiratory Rate 18 07/12/24 08:12 Blood Pressure 116/62 07/12/24 08:12 Pulse Oximetry 94 07/12/24 08:12 Oxygen Delivery Room Air 07/12/24 08:12 reviewed Medical Decision Making MDM Narrative Medical decision making narrative: will treat patient for serous otitis, right otitis media due to exam findings. Will treat with amoxicillin. Patient agrees with plan of care. Patient is well-appearing, nontoxic. No dizziness while at Express Care. Patient is aware of diagnosis, understands and agrees to treatment plan. Anticipatory guidance given. Patient agrees to follow-up as directed and is aware of reasons to seek care at the emergency department. Portions of this record may have been created with voice recognition software Vital Signs Vital Signs: Vital Signs Temperature 36.2 C L 07/12/24 08:12 Pulse Rate 75 07/12/24 08:12 Respiratory Rate 18 07/12/24 08:12 Blood Pressure 116/62 07/12/24 08:12 Pulse Oximetry 94 07/12/24 08:12 Oxygen Delivery Room Air 07/12/24 08:12 Temperature 36.2 C L 07/12/24 08:12 Pulse Rate 75 07/12/24 08:12 Respiratory Rate 18 07/12/24 08:12 Blood Pressure 116/62 07/12/24 08:12 Pulse Oximetry 94 07/12/24 08:12 Oxygen Delivery Room Air 07/12/24 08:12 Discharge Plan Discharge Clinical Impression: Acute serous otitis media, bilateral, Acute right otitis media Patient Disposition: Home, Self-Care Condition: Stable Instructions: Antibiotic Form, Ear Infection (ED) Additional Instructions: take medications as prescribed. Drink at least 64 oz water a day. Follow-up with your primary care physician if symptoms are not improving. Prescriptions: New amoxicillin 875 mg tablet 875 mg PO Q12H 10 Days Qty: 20 0RF fluticasone propionate [Flonase Allergy Relief] 50 mcg/actuation spray,suspension 1 spray intranasal BID Qty: 16 0RF Rx Instructions: administer into each nostril cetirizine 10 mg capsule 10 mg PO DAILY Qty: 30 0RF No Action (DME) Aerochamber MV Spacer See Rx Instructions .Route Qty: 1 0RF Rx Instructions: As directed lamotrigine [Lamictal] 100 mg Tablet 100 mg PO DAILY escitalopram oxalate 20 mg tablet 20 mg PO DAILY cholecalciferol (vitamin D3) 25 mcg (1,000 unit) tablet 25 mcg PO DAILY hydroxyzine pamoate 25 mg capsule 25 mg PO DAILY Zepbound 5 mg/0.5 mL pen injector 5 mg SUBCUT DIRECTED Follow-up/Referrals: PHYSICIAN NOT ON STAFF,NONSTAFF [Primary Care Provider] - Stand Alone Forms: Work/School Release IP Time of Disposition: 08:21
== END 2024-07-12 08:25 | disposition home or self-care (01) ==
PROVIDERS: Emergency Provider Nurse Practitioner Family
DX: H65.03 Acute serous otitis media, bilateral (principal); E11.9 Type 2 diabetes mellitus without complications; J44.9 Chronic obstructive pulmonary disease, unspecified; Z87.891 Personal history of nicotine dependence; Z79.899 Other long term (current) drug therapy
CPT/HCPCS: 99213; G0463

== ENCOUNTER 2025-06-29 08:42 | Emergency (ER) | payer OTHER, SELFPAY ==
--- NOTE | 2025-06-29 08:43 | ED.EAR ---
HPI - Ear Problem General Chief complaint: Ear Stated complaint: Right Ear Pain Time Seen by Provider: 06/29/25 08:43 Source: patient Mode of arrival: ambulatory Limitations: no limitations History of Present Illness HPI Narrative: Rodrigo is a 45-year-old female patient presenting to the clinic today with complaints of right-sided ear pain that just started around 3:00 a.m. this morning. She reports she has been having scratchy throat and runny nose since yesterday. Rates pain currently as 6/10. Had applied a heating pad to her ear to help alleviate pain this morning. Did not take any Tylenol or Motrin. Related Data Home Medications ?Medication ?Instructions ?Recorded ?Confirmed ?Last Taken ?Type lamotrigine 100 mg tablet 100 mg PO DAILY 10/02/19 07/12/24 Unknown History (Lamictal) cholecalciferol (vitamin D3) 25 25 mcg PO DAILY 02/18/20 07/12/24 Unknown History mcg (1,000 unit) tablet escitalopram oxalate 20 mg tablet 20 mg PO DAILY 02/18/20 07/12/24 Unknown History hydroxyzine pamoate 25 mg capsule 25 mg PO DAILY 07/12/24 07/12/24 Unknown History tirzepatide (weight loss) 5 mg/0.5 5 mg subcut DIRECTED 07/12/24 07/12/24 Unknown History mL subcutaneous pen injector (Zepbound) Allergies Allergy/AdvReac Type Severity Reaction Status Date / Time Opioids - Morphine Analogues AdvReac Severe Vomiting Verified 07/12/24 08:16 and dizziness codeine AdvReac Unknown N/V Verified 07/12/24 08:16 metformin AdvReac Nausea and Verified 07/12/24 08:16 Vomiting Review of Systems Review of Systems: Pertinent positives per HPI. Patient denies any fever, chills, rash, headache, visual changes, dizziness, cough, shortness of breath, chest pain, palpitations, nausea, vomiting, diarrhea, constipation, abdominal pain, or any urinary issues. [facility] Past Medical History Medical History Bipolar 1 disorder Anxiety and depression Diabetes Asthma COPD (chronic obstructive pulmonary disease) with acute bronchitis Surgical History Surgical History Hx of arthroscopy of left knee 2X on left meniscus injury History of carpal tunnel release right Hx of appendectomy History of placement of ear tubes 6 sets Previous section History of tonsillectomy and adenoidectomy Family History Family History Mother Glaucoma Hypertension Father Hypertension Congenital heart disease COPD (chronic obstructive pulmonary disease) Social History Social History Smoking status: Former smoker Tobacco type: e-cigarettes/vaping Additional smoking assessment comments: states that she smoked 1- 1.5 pks per day for close to 30 yrs, none 90 dys Alcohol intake: former Substance use: 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 There is no relevant family history pertinent to the patient complaint. Exam Narrative: General: Well-developed, well nourished, in no apparent distress Head: Normocephalic, atraumatic Eyes: Pupils equally round and reactive to light bilaterally, EOM intact, sclera and conjunctive clear, no discharge, lids normal Ears: TMs intact and clear, ear canals clear, no drainage, grossly hearing normal. Nose: Nares patent, clear nasal discharge, mild inflammation, no sinus tenderness. Mouth: Oral pharynx without lesions or masses, good dentition, MMM. Postnasal drip Neck: Supple, trachea midline, no enlargement of anterior or posterior cervical nodes, no thyroid masses or goiter palpable. Cardio: Regular rate and rhythm, s1 and s2 normal, no murmur appreciated. Resp: Clear to auscultation bilaterally, no rhonchi, rales, wheezing or rubs Course Course Emergency Course: Portions of this record may have been created with voice recognition software. Level of Care: Express Care Visit Vital Signs Vital signs: Vital signs reviewed Medical Decision Making MDM Narrative Medical decision making narrative: At the time of visit patient is resting comfortably on the exam table. Patient appears to be nontoxic. Complaints of right-sided ear pain that just started around 3:00 a.m. this morning. She reports she has been having scratchy throat and runny nose since yesterday. Rates pain currently as 6/10. Had applied a heating pad to her ear to help alleviate pain this morning. Did not take any Tylenol or Motrin. On exam patient has bilateral TMs intact and clear, clear nasal drainage, mild anterior turbinates inflammation, oropharynx with slight postnasal drip, lung sounds are clear, heart rates regular rate and rhythm. Plan: I suspect patient has allergic rhinitis/right otalgia. Prescription for fluticasone and Zyrtec was sent to the pharmacy. Supportive measures were discussed with the patient and they voiced understanding discharge instructions and agrees to treatment plan. Return precautions reviewed Differential Diagnosis Differential Diagnosis: Otitis media, otitis externa, eustachian tube dysfunction, cerumen impaction, serous otitis, pharyngitis, uri Discharge Plan Discharge Clinical Impression: Otalgia, right ear Allergic rhinitis Qualifiers: Allergic rhinitis trigger: unspecified Allergic rhinitis seasonality: unspecified Qualified Code(s): J30.9 - Allergic rhinitis, unspecified Patient Disposition: Home Condition: Stable Instructions: Antibiotic Form, Earache (ED), Cold Symptoms (ED) Additional Instructions: May take Coricidin HBP for cold/flu symptoms Increase fluids and stay well hydrated May take Tylenol or motrin as directed on bottle for pain/fever Take Flonase and Zyrtec as prescribed May apply Vicks vapor rub to chest to open sinuses Sinus rinses for congestion Cepacol spray, cough drops, throat lozenges, warm tea with honey/lemon, gargle salt water to soothe throat BRAT diet for diarrhea Clear liquids x 24 hours then advance as tolerated for nausea/vomiting Go to the ED if you develop a worsening in your condition- high fever not controlled by Tylenol or Motrin, dehydration, weakness, lethargy, shortness of breath, or chest pain. Follow up with your PCP in 3-5 days if symptoms persist. Patient Language: Nicaraguan Prescriptions: New fluticasone propionate 50 mcg/actuation spray,suspension 2 spray intranasal DAILY 30 Days Qty: 16 0RF Rx Instructions: administer into each nostril cetirizine 10 mg tablet 10 mg PO DAILY PRN (Reason: allergy symptoms) 30 Days Qty: 30 0RF No Action (DME) Aerochamber MV Spacer See Rx Instructions .Route Qty: 1 0RF Rx Instructions: As directed lamotrigine [Lamictal] 100 mg Tablet 100 mg PO DAILY escitalopram oxalate 20 mg tablet 20 mg PO DAILY cholecalciferol (vitamin D3) 25 mcg (1,000 unit) tablet 25 mcg PO DAILY hydroxyzine pamoate 25 mg capsule 25 mg PO DAILY Zepbound 5 mg/0.5 mL pen injector 5 mg SUBCUT DIRECTED fluticasone propionate [Flonase Allergy Relief] 50 mcg/actuation spray,suspension 1 spray intranasal BID Qty: 16 0RF Rx Instructions: administer into each nostril Follow-up/Referrals: UNKNOWN,DOCTOR [Non-Staff] Time of Disposition: 09:00 Quality NIHSS Nursing Documentation ED NIHSS nursing documentation: reviewed/agree
--- OUTSIDE RECORDS SUMMARY | 2025-06-29 08:44 | XMS_ITS | Patient Health Record ---
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 Name Role Phone Jose L Dozier Primary Care Provider [phone] Allergies Allergen (clinical drug ingredient) Drug/Non Drug Allergy documented on EMR Reaction Allergy Type Onset Date Status codeine Codeine Unknown Drug Allergy Active oxycodone Oxycodone Unknown Drug Allergy Active Reason For Referral No Information Medications Medication SIG (Take, Route, Frequency, Duration) Notes Start Date End Date Status Zepbound 2.5 MG/0.5ML 0.5 mL Subcutaneous; Duration: 30 day(s) Active Escitalopram Oxalate 20 mg TAKE 1 TABLET BY MOUTH DAILY Once a day; Duration: 30 days Active lamoTRIgine 25 MG 3 tablets Orally Once a day; Duration: 30 days Active hydrOXYzine HCl 10 MG 1 - 2 tablets as needed for insomnia Orally Once a day; Duration: 30 days Switching client from capsule to tablet and lowering dose. 04/14/2025 Active Social History Tobacco Use: Social History Observation Description Date Details (start date - stop date) Current Smoker NA - NA Sex Assigned At : Social History Observation Description Sex Assigned At Female Dont use, Tobacco Use/Smoking Question Answer Notes Are you a current every day smoker Tobacco Control (Standard) Question Answer Notes Tobacco use: Current every day smoker Additional Findings: Tobacco user e-cigarette Problems Problem Type SNOMED Code ICD Code Onset Dates Problem Status W/U Status Risk Notes Problem Generalized anxiety disorder (25064425) RAMONA (generalized anxiety disorder) (F41.1) Active confirmed Problem Posttraumatic stress disorder (17743608) PTSD (post-traumat ic stress disorder) (F43.10) Active confirmed Problem Bipolar affective disorder, currently depressed, moderate (361905015) Bipolar disorder, current episode depressed, moderate (F31.32) Active confirmed Vital Signs Heart Rate 78 /min 07/04/2024 Temperature 97.1 degrees Fahrenheit 07/04/2024 Respiratory Rate 16 /min 07/04/2024 Oximetry 96 % 07/04/2024 Blood pressure diastolic 62 mm Hg 07/04/2024 Height 65 in 07/04/2024 Blood pressure systolic 118 mm Hg 07/04/2024 Weight 175.2 lbs 07/04/2024 BMI 29.15 kg/m2 07/04/2024 Encounters Encounter Location Date Provider Diagnosis [address] [id number] 07/04/2024 Jose L Dozier Bipolar disorder, current episode depressed, moderate F31.32 ; PTSD (post-traumatic stress disorder) F43.10 and RAMONA (generalized anxiety disorder) F41.[address] [address] 04/14/2025 Jose L Dozier Bipolar disorder, current episode depressed, moderate F31.32 ; PTSD (post-traumatic stress disorder) F43.10 and RAMONA (generalized anxiety disorder) F41.1 Assessments Encounter Date Diagnosis (ICD Code) Assessment Notes Treatment Notes Treatment Clinical Notes Section Notes 07/04/2024 Bipolar disorder, current episode depressed, moderate (ICD-10 - F31.32) Client doing well overall and requests no changes to her treatment plan. 04/14/2025 Bipolar disorder, current episode depressed, moderate (ICD-10 - F31.32) Client doing well, no treatment plan changes except that client would like to be able to use lower dose of hydroxyzine for insomnia. Lower dose sent in. 04/14/2025 PTSD (post-traumat ic stress disorder) (ICD-10 - F43.10) Client doing well, no treatment plan changes except that client would like to be able to use lower dose of hydroxyzine for insomnia. Lower dose sent in. 04/14/2025 RAMONA (generalized anxiety disorder) (ICD-10 - F41.1) Client doing well, no treatment plan changes except that client would like to be able to use lower dose of hydroxyzine for insomnia. Lower dose sent in. 07/04/2024 PTSD (post-traumat ic stress disorder) (ICD-10 - F43.10) Client doing well overall and requests no changes to her treatment plan. 07/04/2024 RAMONA (generalized anxiety disorder) (ICD-10 - F41.1) Client doing well overall and requests no changes to her treatment plan. 07/04/2024 Other Discussed sleep hygiene and caffeine intake with encouragement to limit electronic devices an hour before bed and to limit caffeine after 3:00pm. Exercise benefits for mood and health discussed. Psychoeducation regarding psychiatric illness provided. Client was educated about risks and benefits of medication, alternatives to medication, off label uses of medication, suicidal ideation with SSRIs, self-administrati on and compliance with medication along with how to safely store medication. Verbal informed consent obtained. Client agrees to return sooner if symptoms worsen or if suicidal or homicidal ideations occur. Client has the phone number to the 24-hour crisis line at [facility]. Questions addressed. Client verbalized understanding of all information and is agreeable to treatment plan. Client doing well overall and requests no changes to her treatment plan. 04/14/2025 Other Discussed sleep hygiene and caffeine intake with encouragement to limit electronic devices an hour before bed and to limit caffeine after 3:00pm. Exercise benefits for mood and health discussed. Psychoeducation regarding psychiatric illness provided. Client was educated about risks and benefits of medication, alternatives to medication, off label uses of medication, suicidal ideation with SSRIs, self-administrati on and compliance with medication along with how to safely store medication. Verbal informed consent obtained. Client agrees to return sooner if symptoms worsen or if suicidal or homicidal ideations occur. Client has the phone number to the 24-hour crisis line at [facility]. Questions addressed. Client verbalized understanding of all information and is agreeable to treatment plan. Client doing well, no treatment plan changes except that client would like to be able to use lower dose of hydroxyzine for insomnia. Lower dose sent in. Plan Of Treatment No Information Insurance Providers Payer Name Payer Address Payer Phone Subscriber Number Group Number Insured Name Patient Relationship to Insured Coverage Start Date Coverage End Date [facility] [address] [place] [address] [id number] Rodrigo Gomez Self - patient is the insured 2 [facility] Att[facility] Claims Department [address] [place] [address] [phone] [id number] Rodrigo Gomez Self - patient is the insured [facility] [address] [facility] [place] [address] [phone] [id number] Rodrigo Gomez Self - patient is the insured 1 Medical (General) History Medical History History ICD Code Sleep apnea dx 06/2020 DM II 07/2020 GERD Surgical History Surgery Date(Month/Year) Knee surgeries Carpal tunnel
[2025-06-29 08:50] VITALS: BP 108/68; PULSE 81; RESP 14; TEMP 36.1; O2SAT 98
== END 2025-06-29 09:07 | disposition home or self-care (01) ==
PROVIDERS: Emergency Provider Nurse Practitioner Family
DX: H92.01 Otalgia, right ear (principal); J30.9 Allergic rhinitis, unspecified; E11.9 Type 2 diabetes mellitus without complications; J44.9 Chronic obstructive pulmonary disease, unspecified; F31.9 Bipolar disorder, unspecified; F41.9 Anxiety disorder, unspecified
CPT/HCPCS: 99213; G0463